=== PATIENT | female | born 1965 | race Caucasian/White ===

== ENCOUNTER → 2018-01-01 | Outpatient (CLI) | payer OTHER | END | disposition home or self-care (01) | LOC: C.LABBC 08:33 | PROVIDERS: ATTEND Internal Medicine Endocrinology, Diabetes & Metabolism | DX: E05.90 Thyrotoxicosis, unspecified without thyrotoxic crisis or storm (principal) ==

== ENCOUNTER → 2018-01-22 | Outpatient (CLI) | payer OTHER ==
[~2018-01-22] MED LIST: ACET-1256 PO; ACYC-57 PO; ATEN25TA PO; IBUP-103 PO; LEVO1IUD2 INT UTER; LISI-729 PO; METH-589 PO; MOME6000 NAE; MULT-513 PO; NORT25CA PO; SUMA100T16 PO
== END | disposition home or self-care (01) ==
LOC: C.LABBC 09:01
PROVIDERS: ATTEND Nurse Practitioner Adult Health
DX: E05.90 Thyrotoxicosis, unspecified without thyrotoxic crisis or storm (principal)

== ENCOUNTER 2018-01-23 18:39 | Emergency (ER) | payer OTHER ==
[~2018-01-23] VITALS: Ht 172.7 cm; Wt 76.2 kg
[2018-01-23 18:41] VITALS: TEMP 36.8; Ht 172.7 cm; Wt 76.2 kg
[2018-01-23 18:55] VITALS: O2SAT 96
--- NOTE | 2018-01-23 18:56 | EMERGENCY ROOM VISIT NOTE ---
History Report prepared by Diane: Darryl Varner Under the Supervision of: Dr. Norris Mederos M.D. First contact with patient: 18:44 Chief Complaint: CHEST PAIN Stated Complaint: CHEST PAINS, SOB History of Present Illness The patient is a 52 year old white female with a past medical history of Graves ' disease who presents to the ED with a cc of constant, achy, chest tightness beginning 25 minutes ago. Pt notes nothing is helping her symptoms. Positive taking two baby aspirins, sweating, family history an SD at age 70, family history of low thyroid markers. Negative worsening pain when walking, cough, fever, chills, history of blood clots in lungs or legs, recent travel, trouble eating, trouble urinating, trouble defecating, and swelling in her legs. Pt has thyroid surgery next week for cancer, and this is her only stressor. Started taking methimazole again yesterday. Source of History: patient Onset: 25 minutes ago Position: chest Quality: ache, other (tightness) Timing: constant Associated Symptoms: No fevers, No chills, No cough Note: Associated symptoms: sweating Denies: worsening pain when walking, trouble eating, trouble urinating, trouble defecating, swelling in her legs Review of Systems See HPI for pertinent positives and negatives. A total of ten systems were reviewed and were otherwise negative. Past Medical & Surgical Medical Problems: (1) Graves disease Family History Heart disease MOTHER, Onset:70 Social History Smoking Status: Never Smoker Marital Status: Occupation Status: employed Current/Historical Medications Scheduled Atenolol (Tenormin), 1 TAB PO DAILY Levonorgestrel (Iud) (Mirena), INT UTER UD Lisinopril (Zestril), 5 MG PO DAILY Methimazole (Methimazole ), 15 MG PO BID Mometasone Furoate (Nasal) (Mometasone Furoate), 1 SPRAYS BETH DAILY Multivitamins/Minerals (Mvi With Minerals), 1 TAB PO DAILY Nortriptyline (Pamelor), 25 MG PO HS Sumatriptan Succinate (Imitrex), 100 MG PO PRN Scheduled PRN Acetaminophen (Tylenol), 1,000 MG PO Q6 PRN for Headache or Pain Acyclovir (Zovirax), 400 MG PO 5 TIMES DAILY PRN for PRN FOR OUTBREAKS Ibuprofen Tab (Advil), 400 MG PO Q6H PRN for Pain Allergies Coded Allergies: Bacitracin (Verified Allergy, Severe, HIVES, 01/23/18) Neomycin (Verified Allergy, Severe, HIVES, 01/23/18) Polymyxin B (Verified Allergy, Severe, HIVES, 01/23/18) Latex (Verified Allergy, Intermediate, RASH, 01/23/18) Physical Exam Vital Signs Date Time Temp Pulse Resp B/P (MAP) Pulse Ox O2 Delivery O2 Flow Rate FiO2 01/23/18 20:56 91 16 138/72 95 Room Air 01/23/18 18:55 96 Room Air 01/23/18 18:55 108 01/23/18 18:52 Room Air 01/23/18 18:41 36.8 104 18 168/88 100 Room Air Physical Exam GENERAL: Awake, alert, well-appearing, NAD. Tearful. HENT: Normocephalic, atraumatic. Anterior neck has no visible goiter. EYES: Normal conjunctiva. Sclera non-icteric. NECK: Supple. No nuchal rigidity. FROM. RESPIRATORY: CTAB, no rhonchi, wheezing, crackles CARDIAC: RRR, no MRG ABDOMEN: Soft, NTND, BS+ MSK: No chest wall TTP, no LE edema NEURO: GCS 15, CN 2-12 intact, moves all 4s on command SKIN: No rash or jaundice noted. Medical Decision & Procedures ER Provider Diagnostic Interpretation: X-ray: Per my interpretation, radiologist review. CHEST ONE VIEW PORTABLE CLINICAL HISTORY: 52 years-old Female presenting with CHEST PAIN. TECHNIQUE: Portable upright AP view of the chest was obtained. COMPARISON: None. FINDINGS: Cardiomediastinal silhouette normal. Lungs and pleural spaces clear. Osseous structures normal. Upper abdomen normal. IMPRESSION: 1. No acute cardiopulmonary disease. Electronically signed by: Uziel Graves M.D. 01/23/2018 7:13 PM Dictated Date/Time: 01/23/2018 7:13 PM Laboratory Results 01/23/18 19:09 Red Blood Count 4.53, Mean Corpuscular Volume 82.8, Mean Corpuscular Hemoglobin 29.4, Mean Corpuscular Hemoglobin Concent 35.5, Mean Platelet Volume 9.2, Neutrophils (%) (Auto) 56.6, Lymphocytes (%) (Auto) 29.5, Monocytes (%) (Auto) 11.0, Eosinophils (%) (Auto) 2.0, Basophils (%) (Auto) 0.6, Neutrophils # (Auto ) 2.02, Lymphocytes # (Auto) 1.05, Monocytes # (Auto) 0.39, Eosinophils # (Auto ) 0.07, Basophils # (Auto) 0.02 Test 01/23/18 19:09 01/23/18 19:17 01/23/18 20:54 White Blood Count 3.56 K/uL (4.8-10.8) Red Blood Count 4.53 M/uL (4.2-5.4) Hemoglobin 13.3 g/dL (12.0-16.0) Hematocrit 37.5 % (37-47) Mean Corpuscular Volume 82.8 fL (80-100) Mean Corpuscular Hemoglobin 29.4 pg (25-34) Mean Corpuscular Hemoglobin Concent 35.5 g/dl (32-36) Platelet Count 212 K/uL (130-400) Mean Platelet Volume 9.2 fL (7.4-10.4) Neutrophils (%) (Auto) 56.6 % Lymphocytes (%) (Auto) 29.5 % Monocytes (%) (Auto) 11.0 % Eosinophils (%) (Auto) 2.0 % Basophils (%) (Auto) 0.6 % Neutrophils # (Auto) 2.02 K/uL (1.4-6.5) Lymphocytes # (Auto) 1.05 K/uL (1.2-3.4) Monocytes # (Auto) 0.39 K/uL (0.11-0.59) Eosinophils # (Auto) 0.07 K/uL (0-0.5) Basophils # (Auto) 0.02 K/uL (0-0.2) RDW Standard Deviation 39.4 fL (36.4-46.3) RDW Coefficient of Variation 13.0 % (11.5-14.5) Immature Granulocyte % (Auto) 0.3 % Immature Granulocyte # (Auto) 0.01 K/uL (0.00-0.02) Prothrombin Time 10.2 SECONDS (9.0-12.0) Prothromb Time International Ratio 1.0 (0.9-1.1) Activated Partial Thromboplast Time 26.6 SECONDS (21.0-31.0) Partial Thromboplastin Ratio 1.0 Magnesium Level 1.9 mg/dl (1.8-2.4) Total Bilirubin 0.5 mg/dl (0.2-1) Direct Bilirubin 0.2 mg/dl (0-0.2) Aspartate Amino Transf (AST/SGOT) 38 U/L (15-37) Alanine Aminotransferase (ALT/SGPT) 39 U/L (12-78) Alkaline Phosphatase 100 U/L (45-117) Pro-B-Type Natriuretic Peptide 80 pg/ml (0-900) Total Protein 7.4 gm/dl (6.4-8.2) Albumin 3.9 gm/dl (3.4-5.0) Lipase 367 U/L (73-393) Thyroid Stimulating Hormone (TSH) < 0.005 uIu/ml (0.300-4.500) Bedside Hemoglobin 12.2 g/dl (12.0-16.0) Bedside Hematocrit 36 % (37-47) Bedside Sodium 139 mEq/L (135-144) Bedside Potassium 3.7 mEq/L (3.3-5.0) Bedside Chloride 100 mEq/L (101-112) Bedside Total CO2 25 mEq/l (24-31) Anion Gap 19.0 mmol/L (16-25) Bedside Blood Urea Nitrogen 17 mg/dl (7-18) Bedside Creatinine 0.6 mg/dl (0.6-1.3) Bedside Glucose (other) 112 mg/dl (70-99) Bedside Ionized Calcium (Keerthi) 1.26 mmol/l (1.12-1.32) Bedside Troponin I < 0.030 ng/ml (0-0.045) Laboratory results reviewed by me Medications Administered Medications (Trade) Dose Ordered Sig/Cole Route Start Time Stop Time Status Last Admin Dose Admin Atenolol (Tenormin Tab) 25 mg ONE STAT PO 01/23/18 20:39 01/23/18 20:41 DC 01/23/18 20:57 25 MG ECG Per My Interpretation Indication: chest pain Rate (beats per minute): 102 Rhythm: sinus tachycardia Findings: Q waves (Anterior), T-wave inversion (Single TWI in lead III), other (Normal interval. Normal axis.) ED Course 1847: The patient was evaluated in room A11B. A complete history and physical exam was performed. 2030: I reevaluated the patient and discussed her current exam findings. She will have her troponin recheck, and she will be given medication. 2141: I reevaluated the patient. Discussed results and discharge instructions: she verbalized understanding and agreement. The patient is ready for discharge. Medical Decision The patient is a 52 year old white female with a past medical history of Graves ' disease who presents to the ED with a cc of constant, achy, chest tightness beginning 25 minutes ago. Differential diagnosis: Etiologies such as cardiac ischemia, aortic dissection, pulmonary embolism, pneumonia, pneumothorax, musculoskeletal, infections, pericarditis, myocarditis , esophageal rupture, gastrointestinal, as well as others were entertained. Patient was seen and evaluated at the bedside. Patient was complaining of some chest discomfort. Patient did feel as though she was little sweaty as well. Of note the patient is pending a likely thyroidectomy for Graves' disease. Patient had been on methimazole but was taken off it and only recently restarted yesterday. Patient denies any exertional symptoms. The patient does not have an any risk factors for DVT or PE. Patient did have blood work completed along with an EKG, troponin, chest x-ray and TSH. Patient's TSH is fairly low which is likely consistent with her Graves' disease. The patient's troponin was negative. Patient's EKG did show to show some Q waves anteriorly. Patient does not show any active ischemic changes. No priors to compare to. Patient has been undergoing a lot of stress and has been anxious since she is concerned about possible cancer of her thyroid. The patient does have a heart score less than 4 I believe this less likely to be ACS. Patient is PRC of 1 given her heart rates but I think this is most likely related to her thyroid. Less likely PE. The patient was given a first dose of atenolol given her history of Graves' disease. The patient was feeling improved. Patient does have follow-up with cardiology on Friday. Patient was told to keep this appointment. Patient was given a prescription for atenolol he was deemed suitable for outpatient follow-up and treatment. The patient did have a repeat troponin that was negative. Patient was given strict follow-up, discharge, and return precautions. All questions were answered. Patient was deemed suitable for outpatient follow-up at this time. Patient agreed with the plan of care and was safely discharged home. Medication Reconcilliation Current Medication List: was personally reviewed by me Blood Pressure Screening Patient's blood pressure: Elevated blood pressure Blood pressure disposition: Elevated BP felt to be situational Impression Primary Impression: Graves disease Additional Impression: Left sided chest pain Scribe Attestation The scribe's documentation has been prepared under my direction and personally reviewed by me in its entirety. I confirm that the note above accurately reflects all work, treatment, procedures, and medical decision making performed by me. Departure Information Dispostion Home / Self-Care Prescriptions Atenolol (TENORMIN) 25 Mg Tab 1 TAB PO DAILY for 30 Days, #30 TAB 0 Refills Prov: Norris Mederos M.D. 01/23/18 Referrals Stephen Bennett M.D. (PCP) Forms Call Back Authorization, HOME CARE DOCUMENTATION FORM, IMPORTANT VISIT INFORMATION Patient Instructions [facility] [place] Additional Instructions Please return to the emergency department if you have worsening or recurrent symptoms not amenable to at-home treatment. Please call for a follow-up appointment with her primary care physician. Please take your medications as prescribed. If you have other concerns and/or complaints please feel free to also call your primary care physician's office or return the ED for further evaluation, management, and treatment. Take your medications as prescribed. You have been examined and treated today on an emergency basis only. This is not a substitute for, or an effort to provide, complete comprehensive medical care. It is impossible to recognize and treat all injuries or illnesses in a single emergency department visit. It is therefore important that you follow up closely with [facility], your PCP, and/or your specialist(s). Call as soon as possible for an appointment. Thank you for your time and consideration. I look forward to speaking with you again soon. Please don't hesitate to call us if you have any questions. Problem Qualifiers
--- NOTE | 2018-01-23 19:15 | DIAGNOSTIC IMAGING REPORT ---
CHEST ONE VIEW PORTABLE CLINICAL HISTORY: 52 years-old Female presenting with CHEST PAIN. TECHNIQUE: Portable upright AP view of the chest was obtained. COMPARISON: None. FINDINGS: Cardiomediastinal silhouette normal. Lungs and pleural spaces clear. Osseous structures normal. Upper abdomen normal. IMPRESSION: 1. No acute cardiopulmonary disease. Electronically signed by: Uziel Graves M.D. 01/23/2018 7:13 PM Dictated Date/Time: 01/23/2018 7:13 PM
[2018-01-23 19:20] LABS: BASO % 0.6 %; BASO ABS # 0.02 K/uL (0-0.2); EOS ABS # 0.07 K/uL (0-0.5); HEMATOCRIT 37.5 % (37-47); HEMOGLOBIN 13.3 g/dL (12.0-16.0); IG# 0.01 K/uL (0.00-0.02); LYMPH % 29.5 %; LYMPH ABS # 1.05 K/uL (1.2-3.4); MEAN CELL VOLUME 82.8 fL (80-100); MEAN CORPUSCULAR HEMOGLOBIN 29.4 pg (25-34); MEAN CORPUSCULAR HGB CONC 35.5 g/dl (32-36); MEAN PLATELET VOLUME 9.2 fL (7.4-10.4); MONO ABS # 0.39 K/uL (0.11-0.59); NEUT % 56.6 %; NEUT ABS # 2.02 K/uL (1.4-6.5); PLATELET COUNT 212 K/uL (130-400); RED CELL DISTRIBUTION WIDTH SD 39.4 fL (36.4-46.3); WHITE BLOOD COUNT 3.56 K/uL (4.8-10.8)
[2018-01-23 19:28] LABS: PTT PATIENT 26.6 SECONDS (21.0-31.0)
[2018-01-23 19:29] LABS: ISTAT CREATININE 0.6 mg/dl (0.6-1.3); ISTAT IONIZED CALCIUM 1.26 mmol/l (1.12-1.32); ISTAT POTASSIUM 3.7 mEq/L (3.3-5.0)
[2018-01-23] MEDS ORDERED: NORT25CA PO (19:38)
[2018-01-23] MEDS ORDERED: ACYC-57 PO (19:38)
[2018-01-23] MEDS ORDERED: LISI-729 PO (19:38)
[2018-01-23] MEDS ORDERED: MOME6000 NAE (19:38)
[2018-01-23] MEDS ORDERED: MULT-513 PO (19:38)
[2018-01-23] MEDS ORDERED: IBUP-103 PO (19:38)
[2018-01-23] MEDS ORDERED: SUMA100T16 PO (19:38)
[2018-01-23] MEDS ORDERED: METH-589 PO (19:38)
[2018-01-23] MEDS ORDERED: ACET-1256 PO (19:38)
[2018-01-23] MEDS ORDERED: LEVO1IUD2 INT UTER (19:39)
[2018-01-23 19:49] LABS: ALBUMIN 3.9 gm/dl (3.4-5.0); ALKALINE PHOSPHATASE 100 U/L (45-117); ALT/SGPT 39 U/L (12-78); AST/SGOT 38 U/L (15-37); LIPASE 367 U/L (73-393); TOTAL PROTEIN 7.4 gm/dl (6.4-8.2)
[2018-01-23] MEDS ORDERED: KETOROLAC TROMETHAMINE 30 MG/ML VIAL IV STA (19:59)
[2018-01-23] MEDS ORDERED: ATEN25TA PO (21:52)
[2018-01-23 22:00] VITALS: BP 115/76; PULSE 67; O2SAT 98
== END 2018-01-23 22:13 | disposition home or self-care (01) ==
LOC: C.EDB 18:40 → C.EDA 22:13
DX: R07.9 Chest pain, unspecified (principal); E05.00 Thyrotoxicosis with diffuse goiter without thyrotoxic crisis or storm; Z97.5 Presence of (intrauterine) contraceptive device; Z82.49 Family history of ischemic heart disease and other diseases of the circulatory system; Z79.899 Other long term (current) drug therapy; Z88.1 Allergy status to other antibiotic agents; Z91.040 Latex allergy status

== ENCOUNTER → 2018-01-29 | Outpatient (CLI) | payer OTHER | END | disposition home or self-care (01) | LOC: C.LABBC 10:51 | PROVIDERS: ATTEND Internal Medicine Endocrinology, Diabetes & Metabolism | DX: E05.90 Thyrotoxicosis, unspecified without thyrotoxic crisis or storm (principal) ==